=== PATIENT | female | born 1945 | race Caucasian/White ===

== ENCOUNTER 2017-08-12 10:57 | Inpatient (IN) | payer MEDICARE ==
[2017-08-12] VITALS (9 sets, daily range): BP systolic 117–139; BP diastolic 60–78; PULSE 43–62; RESP 15–22; TEMP 96.3–98.4; O2SAT 92–96
[~2017-08-12] VITALS: Ht 154.9 cm; Wt 94.4 kg
[~2017-08-12 10:57] MED LIST: ALBU.5I INH; APIX5TAB PO; CART300C2 PO; DIGO0.12 PO; ECOT81TA2 PO; EPIP0.3I IM; FENO50TA PO; FLUT50I; FURO1TAB93 PO; GABA300C3 PO; GLUCTAB PO; LEVA500T PO; LISI-360 PO; LORA1TAB PO; PRIL20CA PO; SPIRCAP INH; TRAM50 PO; VENTAER INH; Z.0.COMMODE-3:1; Z.0.CPM; Z.0.WALKERFRONT
--- NOTE | 2017-08-12 11:25 | PD ---
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 Patient was recently seen by Dr. Gloria last week and blood pressure medications were adjusted at that time. She states she is on Elequist as well as digoxin for her atrial fibrillation. Patient denies fever, chills, nausea, vomiting, or other symptoms. She denies significant pain but more of a congestion and pressure feeling. Patient has multiple allergies. Please see list. PFSH Past Medical History Asthma: Yes Autoimmune Disease: No Anxiety: Yes Depression: No Heart Rhythm Problems: Yes (afib) Cancer: Yes (LYMPH NODE MIGRATED INTO RIGHT BREAST 1978) Cardiovascular Problems: Yes (ATRIAL FIB) High Cholesterol: Yes Chest Pain: No Congestive Heart Failure: No COPD: Yes Cerebrovascular Accident: No Diabetes: Yes (TYPE 2) Patient Takes Glucophage: No Endocrine: No Gastrointestinal Disorders: Yes (ACID REFLUX ) GERD: Yes Glaucoma: No Genitourinary: No Hepatitis: No Hiatal Hernia: Yes Hypertension: Yes Immune Disorder: No Kidney Stones: No Musculoskeletal: Yes (ARTHRITIS) Neurologic: Yes (l side brain aneurysm) Psychiatric: No Reproductive: No Respiratory: Yes (SLEEP APNEA, COPD, ASTHMA ) Migraines: No Seizures: No Sleep Apnea: Yes (NEEDS BIPAP AT NIGHT) Thyroid Disease: No Ulcer: No PNEUMOCCOCAL Vaccine (Year): 1 Past Surgical History Abdominal Surgery: Yes (abd hernia lap josé, hernia repair with mesh) AICD: No Body Medical Devices: TITANIUM PIN LEFT BREAST Eye Surgery: Yes (BILATERAL CATARACT SX) Gynecologic Surgery: No Joint Replacement: No Oral Surgery: Yes (tonsillectomy) Pacemaker: No Thoracic Surgery: Yes (RIGHT RADICAL MASTECTOMY) Other Surgery: Yes Social History Alcohol Use: No Tobacco Use: No Substance Use: No Allergies-Medications (Allergen,Severity, Reaction): Coded Allergies: diatrizoate meglumine (Unverified Allergy, Severe, Rash, 08/12/17) epinephrine (Unverified Allergy, Severe, SEVERE HEART POUNDING, 08/12/17) gadobenic acid (Unverified Allergy, Severe, Rash, 08/12/17) gadodiamide (Unverified Allergy, Severe, Rash, 08/12/17) gadoteridol (Unverified Allergy, Severe, Rash, 08/12/17) iodixanol (Unverified Allergy, Severe, Rash, 08/12/17) iohexol (Unverified Allergy, Severe, Rash, 08/12/17) meperidine (Unverified Allergy, Severe, HALLUCINATIONS, 08/12/17) penicillin G (Unverified Allergy, Severe, Rash, 08/12/17) procaine (Unverified Allergy, Severe, CAUSED SEVERE HEART POUNDING, ) propofol (Unverified Allergy, Severe, hot for 3 days and then cold for 3 days, 08/12/17) warfarin (Unverified Allergy, Severe, Hives, 08/12/17) Sulfa (Sulfonamide Antibiotics) (Unverified Allergy, Unknown, 08/12/17) PT UNSURE OF REACTION Uncoded Allergies: anesthesia (Adverse Reaction, Severe, Irritability/Anxiety, 09/26/15) pt states she has multiple reactions to anesthesia sulfur (Adverse Reaction, Severe, 09/26/15) Reported Meds & Prescriptions Reported Meds & Active Scripts Active Reported Ventolin Hfa 18 GM Inh (Albuterol Sulfate) 90 Mcg/Act Aer 2 Puff INH Q4-6H PRN Potassium Chloride ER (Potassium Chloride) 10 Meq Tab 10 Meq PO DAILY Omeprazole 20 Mg Tab 20 Mg PO DAILY Methyldopa 250 Mg Tab 250 Mg PO BID Lorazepam 1 Mg Tab 1 Mg PO Q8H PRN Lisinopril 40 Mg Tab 40 Mg PO DAILY Combivent Respimat Inh (Ipratropium-Albuterol Inh) 20-100 Halfway/Act Aero 1 Puff INH QID Furosemide 40 Mg Tab 40 Mg PO DAILY Fluticasone Nasal [place] 50 Mcg/Act Naspr 50 Mcg EACH NARE BID 50 mcg/spray Fluoxetine (Fluoxetine HCl) 10 Mg Tab 10 Mg PO DAILY Fenofibrate 145 Mg Tab 145 Mg PO DAILY Epipen 2-Toño Inj (Epinephrine) 0.3 Mg/0.3 Ml Pfpen 0.3 Mg IM ONCE PRN Eliquis (Apixaban) 5 Mg Tab 5 Mg PO BID Digoxin 0.125 Mg Tab 0.125 Mg PO DAILY Clotrimazole-Betamethasone Topical (Betamethasone/Clotrimazole) 1-0.05% Cream 1 Applic TOPICAL BID Clobetasol Topical (Clobetasol Propionate) 0.05% Cream 1 Applic TOPICAL BID Cartia Xt (Diltiazem ER 24 HR) 120 Mg Caper 360 Mg PO DAILY Aspirin 81 Mg Chew 81 Mg CHEW DAILY Anoro Ellipta Inh (Umeclidinium/Vilanterol) 62.5-25 Mcg/Act Aero 1 Puff INH DAILY Review of Systems Except as stated in HPI: all other systems reviewed are Neg General / Constitutional: No: Fever Eyes: No: Visual changes HENT: No: Headaches Cardiovascular: Positive: Palpitations, Irregular Rhythm, Dyspnea on exertion, Edema (occasionally.), No: Chest Pain or Discomfort, Tachycardia, Diaphoresis, Varicosities, Cyanosis, Varicosities, Phlebitis, Claudication, Other Respiratory: Positive: Shortness of Breath Gastrointestinal: No: Nausea, Vomiting, Diarrhea, Abdominal Pain Genitourinary: No: Dysuria Musculoskeletal: No: Pain Skin: No Rash Neurologic: No: Weakness Psychiatric: No: Depression Endocrine: No: Polydipsia Hematologic/Lymphatic: No: Easy Bruising Physical Exam Narrative GENERAL: Patient appears mildly anxious but otherwise in no acute distress. SKIN: Warm and dry. Normal color. Normal turgor. HEAD: Atraumatic. Normocephalic. EYES: Pupils equal and round. No scleral icterus. No injection or drainage. ENT: No nasal bleeding or discharge. Mucous membranes pink and moist. Pharynx is clear. Airway is patent. NECK: Trachea midline. Supple nontender. CARDIOVASCULAR: Irregular rate and rhythm. No significant murmurs gallops or rubs appreciated this time. RESPIRATORY: No accessory muscle use. Clear to auscultation. Breath sounds equal bilaterally. GASTROINTESTINAL: Abdomen soft, non-tender, nondistended. Hepatic and splenic margins not palpable. MUSCULOSKELETAL: Extremities without clubbing, cyanosis, or edema. No obvious deformities. NEUROLOGICAL: Awake and alert. No obvious cranial nerve deficits. Motor grossly within normal limits. Five out of 5 muscle strength in the arms and legs. Normal speech. PSYCHIATRIC: Appropriate mood and affect; insight and judgment normal. Data Data Last Documented VS Vital Signs Date Time Temp Pulse Resp B/P (MAP) Pulse Ox O2 Delivery O2 Flow Rate FiO2 08/12/17 13:57 43 22 139/62 (87) 96 Nasal Cannula 2.00 08/12/17 11:00 98.4 Orders Orders Complete Blood Count With Diff (08/12/17 11:27) Comprehensive Metabolic Panel (08/12/17 11:27) B-Type Natriuretic Peptide (08/12/17 11:27) Act Partial Throm Time (Ptt) (08/12/17 11:) Prothrombin Time / Inr (Pt) (08/12/17 11:27) Magnesium (Mg) (08/12/17 11:27) Ckmb (Isoenzyme) Profile (08/12/17:) Troponin I (08/12/17:) Urinalysis - C+S If Indicated (08/12/17 11:27) Iv Access Insert/Monitor (08/12/17 11:27) Electrocardiogram (08/12/17:) Ecg Monitoring (08/12/17:) Oximetry (08/12/17:) Oxygen Administration (08/12/17 11:27) Chest, Single Ap (08/12/17 11:27) Sodium Chloride 0.9% Flush (Ns Flush) (08/12/17 11:30) Digoxin (08/12/17 11:27) Furosemide Inj (Lasix Inj) (08/12/17 14:00) Admit Order (Ed Use Only) (08/12/17 14:05) Labs Laboratory Tests Test 08/12/17 11:30 08/12/17 13:50 White Blood Count 11.8 TH/MM3 Red Blood Count 3.47 MIL/MM3 Hemoglobin 9.5 GM/DL Hematocrit 29.1 % Mean Corpuscular Volume 84.0 FL Mean Corpuscular Hemoglobin 27.2 PG Mean Corpuscular Hemoglobin Concent 32.4 % Red Cell Distribution Width 16.6 % Platelet Count 263 TH/MM3 Mean Platelet Volume 9.4 FL Neutrophils (%) (Auto) 81.9 % Lymphocytes (%) (Auto) 12.8 % Monocytes (%) (Auto) 4.2 % Eosinophils (%) (Auto) 0.7 % Basophils (%) (Auto) 0.4 % Neutrophils # (Auto) 9.7 TH/MM3 Lymphocytes # (Auto) 1.5 TH/MM3 Monocytes # (Auto) 0.5 TH/MM3 Eosinophils # (Auto) 0.1 TH/MM3 Basophils # (Auto) 0.0 TH/MM3 CBC Comment DIFF FINAL Differential Comment Prothrombin Time 12.8 SEC Prothromb Time International Ratio 1.2 RATIO Activated Partial Thromboplast Time 28.5 SEC Blood Urea Nitrogen 29 MG/DL Creatinine 1.62 MG/DL Random Glucose 204 MG/DL Total Protein 6.5 GM/DL Albumin 3.0 GM/DL Calcium Level 8.5 MG/DL Magnesium Level 1.8 MG/DL Alkaline Phosphatase 57 U/L Aspartate Amino Transf (AST/SGOT) 22 U/L Alanine Aminotransferase (ALT/SGPT) 32 U/L Total Bilirubin 0.3 MG/DL Sodium Level 137 MEQ/L Potassium Level 4.4 MEQ/L Chloride Level 105 MEQ/L Carbon Dioxide Level 22.3 MEQ/L Anion Gap 10 MEQ/L Estimat Glomerular Filtration Rate 31 ML/MIN Total Creatine Kinase 33 U/L Troponin I LESS THAN 0.02 NG/ML B-Type Natriuretic Peptide 303 PG/ML Digoxin Level 1.5 NG/ML [facility] Medical Decision Making Medical Screen Exam Complete: Yes Emergency Medical Condition: Yes Medical Record Reviewed: Yes Differential Diagnosis CHF. Palpitations. Atrial fibrillation. Cardiac syndrome. Narrative Course Patient appears medically stable at time of exam. Labs ordered including CBC, CMP, proBNP, digoxin level, cardiac panel, urinalysis. Chest x-ray and EKG are ordered. Chest x-ray shows: CONCLUSION: 1. Pulmonary venous congestion. 2. No significant changes. Labs show: CBC shows slight leukocytosis of 11.8, hemoglobin is 9.5. Hematocrit is 29.1. CMP shows BUN of 29, creatinine 1.62, gross is elevated at 204. Troponin is less than 0.02. ProBNP is 303. Digoxin level was normal at 1.5. Coagulation studies show PT of 12.8, INR 1.2, APTT 28.5. Patient is felt to be having symptomatic bradycardia with venous congestion on chest x-ray. Patient is given 20 mg Lasix IV. [facility] consult. Diagnosis Primary Impression: Symptomatic bradycardia Additional Impressions: Exertional dyspnea Pulmonary venous congestion Admitting Information Admitting Physician Requests: Admit Condition: Stable Santos Coppola Aug 12, 2017 11:25
[2017-08-12] MEDS ORDERED: SODIUM CHLORIDE 0.9% FLUSH 10 ML FLUSH IVF PRN (11:30)
[2017-08-12 11:53] LABS: AUTOMATED NEUTROPHIL # 9.7 TH/MM3 (1.8-7.7); BASOPHIL % 0.4 % (0.0-2.0); EOSINOPHIL # 0.1 TH/MM3 (0-0.4); EOSINOPHIL % 0.7 % (0.0-4.0); HEMATOCRIT 29.1 % (35.0-46.0); HEMO FLAGS DIFF FINAL; LYMPH % 12.8 % (9.0-44.0); LYMPHOCYTE # 1.5 TH/MM3 (1.0-4.8); MEAN CORPUSCULAR HEMOGLOBIN 27.2 PG (27.0-34.0); MEAN CORPUSCULAR HGB CONC 32.4 % (32.0-36.0); MONO % 4.2 % (0.0-8.0); NEUT % 81.9 % (16.0-70.0); PLATELET COUNT 263 TH/MM3 (150-450); RED BLOOD COUNT 3.47 MIL/MM3 (4.00-5.30); RED CELL DISTRIBUTION WIDTH 16.6 % (11.6-17.2); WHITE BLOOD COUNT 11.8 TH/MM3 (4.0-11.0)
--- NOTE | 2017-08-12 11:58 | RADRPT ---
EXAM DATE/TIME: 08/12/2017 11:50 [facility] COMPARISON: CHEST SINGLE AP, October 10, 2015, 5:49. INDICATIONS : Shortness of breath. MEDICAL HISTORY : Chronic obstructive pulmonary disease. A-fib. SURGICAL HISTORY : None. ENCOUNTER: Initial ACUITY: 2 days PAIN SCORE: 0/10 LOCATION: Bilateral chest FINDINGS: A single view of the chest demonstrates the lungs to be symmetrically aerated without evidence of mas s, infiltrate or effusion. There is some pulmonary venous congestion. Heart size is enlarged but stab le. The bony structures are stable.. CONCLUSION: 1. Pulmonary venous congestion. 2. No significant changes. Edwar Camara MD on August 12, 2017 at 11:56 Board Certified Radiologist. This report was verified electronically.
[2017-08-12 12:02] LABS: APTT (PATIENT) 28.5 SEC (24.3-30.1); INTERNATIONAL NORMALIZED RATIO 1.2 RATIO; PROTHROMBIN TIME - PATIENT 12.8 SEC (9.8-11.6)
[2017-08-12 12:08] LABS: ALT (GPT) 32 U/L (10-53); ANION GAP 10 MEQ/L (5-15); AST (GOT) 22 U/L (15-37); BICARBONATE 22.3 MEQ/L (21.0-32.0); BLOOD UREA NITROGEN 29 MG/DL (7-18); CHLORIDE 105 MEQ/L (98-107); GLOMERULAR FILTRATION RATE 31 ML/MIN (>89); MAGNESIUM 1.8 MG/DL (1.5-2.5); POTASSIUM 4.4 MEQ/L (3.5-5.1); SODIUM (NA) 137 MEQ/L (136-145)
[2017-08-12 12:24] LABS: ALKALINE PHOSPHATASE 57 U/L (45-117); DIGOXIN 1.5 NG/ML (0.8-2.0); TOTAL BILIRUBIN ADULT 0.3 MG/DL (0.2-1.0)
[2017-08-12 12:29] LABS: CREATINE KINASE 33 U/L (26-192)
[2017-08-12] MEDS ORDERED: UMEC1AER INH (12:35)
[2017-08-12] MEDS ORDERED: FLUO10TA PO (12:35)
[2017-08-12] MEDS ORDERED: IPRAAER INH (12:35)
[2017-08-12] MEDS ORDERED: LORA1TAB12 PO (12:35)
[2017-08-12] MEDS ORDERED: POTA10TA2 PO (12:35)
[2017-08-12] MEDS ORDERED: FLUT50SP EACH NARE (12:35)
[2017-08-12] MEDS ORDERED: DIGO0.12 PO (12:35)
[2017-08-12] MEDS ORDERED: OMEP20TA PO (12:35)
[2017-08-12] MEDS ORDERED: CART120C PO (12:35)
[2017-08-12] MEDS ORDERED: VENTAER INH (12:35)
[2017-08-12] MEDS ORDERED: CLOB0.055 TOPICAL (12:35)
[2017-08-12] MEDS ORDERED: CLOTCRE TOPICAL (12:35)
[2017-08-12] MEDS ORDERED: FURO40TA PO (12:35)
[2017-08-12] MEDS ORDERED: ASPI81CH CHEW (12:35)
[2017-08-12] MEDS ORDERED: LISI40TA PO (12:35)
[2017-08-12] MEDS ORDERED: FENO145T2 PO (12:35)
[2017-08-12] MEDS ORDERED: EPIP0.3I IM (12:35)
[2017-08-12] MEDS ORDERED: APIX5TAB PO (12:35)
[2017-08-12] MEDS ORDERED: METH250T PO (12:35)
[2017-08-12] MEDS ORDERED: FUROSEMIDE 20 MG/2 ML VIAL IV PUSH ONE (14:00)
[2017-08-12 14:26] LABS: BACTERIA, URINE MANY /hpf; BLOOD, URINE SMALL (NEG); GLUCOSE,URINE TRACE mg/dL (NEG); GRANULAR CAST, URINE 2 /lpf; HYALINE CAST, URINE 19 /lpf (RARE); KETONE, URINE TRACE mg/dL (NEG); MUCUS URINE FEW /lpf (OCC); NITRITE,URINE NEG (NEG); PH, URINE 5.5 (5.0-8.5); SQUAMOUS EPITHELIAL CELL URINE 13 /hpf (0-5)
[2017-08-12 14:30] LABS: COMMENT (UR) CULTURE INDICATED; CULTURE IF INDICATED CULTURE INDICATED; URINE COLOR AMBER (YELLW/STRAW)
[2017-08-12] MEDS ORDERED: LORazepam 1 MG TAB PO PRN (15:00)
--- NOTE | 2017-08-12 15:21 | HHI.HP ---
HPI [facility] Primary Care Physician Seema Jarrell MD Admission Diagnosis Symptomatic Bradicardia/Exertional Dyspnea Chief Complaint: sob Travel History International Travel<30 Days: No Contact w/Intl Traveler <30 Da: No Traveled to Known Affected Are: No History of Present Illness Pt is 72 yo with htn, afib, copd, anxiety presenting with more sob. She reports medication changes and close observation by cp of her bp and pulse over recent weeks. Pt is quite anxious and has some difficulty explaining the exact medication changes. she thinks her methyldopa and was increased and perhaps the cartia. she actually has not felt well for weeks and even reports palpitations. reports fluctuating weight and abdomen distention. Pt noted to have severe bradycardia on arrival with apparently Junctional rhythm.. No dizziness or lightheadedness. Review of Systems Other sob. weakness. Past Family Social History Past Medical History COPD Hx of TIA in 04/2014 Small cerebral aneurysm, 2 or 3 mm. A. fib Diabetes mellitus HTN Hx of lymphoma with rt radical mastectomy 30 years ago Hernia surgery Cholecystectomy Cataract surgery Right mastectomy Tonsillectomy right tka echo: 01/07 ef 55%, mild RV dilation and right atrial dil mild Reported Medications Ventolin Hfa 18 GM Inh (Albuterol Sulfate) 90 Mcg/Act Aer 2 Puff INH Q4-6H PRN Potassium Chloride ER (Potassium Chloride) 10 Meq Tab 10 Meq PO DAILY prn with lasix Omeprazole 20 Mg Tab 20 Mg PO DAILY Methyldopa 250 Mg Tab 250 Mg PO BID Lorazepam 1 Mg Tab 1 Mg PO Q8H PRN Lisinopril 40 Mg Tab 40 Mg PO DAILY Combivent Respimat Inh (Ipratropium-Albuterol Inh) 20-100 Assisted/Act Aero 1 Puff INH QID Furosemide 40 Mg Tab 40 Mg PO DAILY prn Fluticasone Nasal [place] 50 Mcg/Act Naspr 50 Mcg EACH NARE BID 50 mcg/spray Fluoxetine (Fluoxetine HCl) 10 Mg Tab 10 Mg PO DAILY Fenofibrate 145 Mg Tab 145 Mg PO DAILY Epipen 2-Toño Inj (Epinephrine) 0.3 Mg/0.3 Ml Pfpen 0.3 Mg IM ONCE PRN Eliquis (Apixaban) 5 Mg Tab 5 Mg PO BID Digoxin 0.125 Mg Tab 0.125 Mg PO DAILY Clotrimazole-Betamethasone Topical (Betamethasone/Clotrimazole) 1-0.05% Cream 1 Applic TOPICAL BID Clobetasol Topical (Clobetasol Propionate) 0.05% Cream 1 Applic TOPICAL BID Cartia Xt (Diltiazem ER 24 HR) 120 Mg Caper 360 Mg PO DAILY Aspirin 81 Mg Chew 81 Mg CHEW DAILY Anoro Ellipta Inh (Umeclidinium/Vilanterol) 62.5-25 Mcg/Act Aero 1 Puff INH DAILY Allergies: Coded Allergies: diatrizoate meglumine (Unverified Allergy, Severe, Rash, 08/12/17) epinephrine (Unverified Allergy, Severe, SEVERE HEART POUNDING, 08/12/17) gadobenic acid (Unverified Allergy, Severe, Rash, 08/12/17) gadodiamide (Unverified Allergy, Severe, Rash, 08/12/17) gadoteridol (Unverified Allergy, Severe, Rash, 08/12/17) iodixanol (Unverified Allergy, Severe, Rash, 08/12/17) iohexol (Unverified Allergy, Severe, Rash, 08/12/17) meperidine (Unverified Allergy, Severe, HALLUCINATIONS, 08/12/17) penicillin G (Unverified Allergy, Severe, Rash, 08/12/17) procaine (Unverified Allergy, Severe, CAUSED SEVERE HEART POUNDING, ) propofol (Unverified Allergy, Severe, hot for 3 days and then cold for 3 days, 08/12/17) warfarin (Unverified Allergy, Severe, Hives, 08/12/17) Sulfa (Sulfonamide Antibiotics) (Unverified Allergy, Unknown, 08/12/17) PT UNSURE OF REACTION Uncoded Allergies: anesthesia (Adverse Reaction, Severe, Irritability/Anxiety, 09/26/15) pt states she has multiple reactions to anesthesia sulfur (Adverse Reaction, Severe, 09/26/15) Family History nc Social History no etoh/tob Physical Exam Vital Signs heart reg lung good air entry abd s/nt ext no edema Vital Signs Date Time Temp Pulse Resp B/P (MAP) Pulse Ox O2 Delivery O2 Flow Rate FiO2 08/12/17 13:57 43 22 139/62 (87) 96 Nasal Cannula 2.00 08/12/17 12:14 18 117/63 (81) 93 2.00 08/12/17 12:13 92 Nasal Cannula 2.00 08/12/17 12:13 92 Nasal Cannula 2.00 08/12/17 12:10 89 Room Air 08/12/17 11:22 17 08/12/17 11:00 98.4 52 15 121/60 (80) 95 Laboratory Laboratory Tests Test 08/12/17 11:30 08/12/17 13:50 White Blood Count 11.8 Red Blood Count 3.47 Hemoglobin 9.5 Hematocrit 29.1 Mean Corpuscular Volume 84.0 Mean Corpuscular Hemoglobin 27.2 Mean Corpuscular Hemoglobin Concent 32.4 Red Cell Distribution Width 16.6 Platelet Count 263 Mean Platelet Volume 9.4 Neutrophils (%) (Auto) 81.9 Lymphocytes (%) (Auto) 12.8 Monocytes (%) (Auto) 4.2 Eosinophils (%) (Auto) 0.7 Basophils (%) (Auto) 0.4 Neutrophils # (Auto) 9.7 Lymphocytes # (Auto) 1.5 Monocytes # (Auto) 0.5 Eosinophils # (Auto) 0.1 Basophils # (Auto) 0.0 CBC Comment DIFF FINAL Differential Comment Prothrombin Time 12.8 Prothromb Time International Ratio 1.2 Activated Partial Thromboplast Time 28.5 Blood Urea Nitrogen 29 Creatinine 1.62 Random Glucose 204 Total Protein 6.5 Albumin 3.0 Calcium Level 8.5 Magnesium Level 1.8 Alkaline Phosphatase 57 Aspartate Amino Transf (AST/SGOT) 22 Alanine Aminotransferase (ALT/SGPT) 32 Total Bilirubin 0.3 Sodium Level 137 Potassium Level 4.4 Chloride Level 105 Carbon Dioxide Level 22.3 Anion Gap 10 Estimat Glomerular Filtration Rate 31 Total Creatine Kinase 33 Troponin I LESS THAN 0.02 B-Type Natriuretic Peptide 303 Digoxin Level 1.5 Urine Color CHATA Urine Turbidity HAZY Urine pH 5.5 Urine Specific [place] 1.027 Urine Protein 300 Urine Glucose (UA) TRACE Urine Ketones TRACE Urine Occult Blood SMALL Urine Nitrite NEG Urine Bilirubin NEG Urine Urobilinogen 4.0 Urine Leukocyte Esterase MOD Urine RBC 2 Urine WBC 14 Urine Squamous Epithelial Cells 13 Urine Bacteria MANY Urine Hyaline Casts 19 Urine Granular Casts 2 Urine Mucus FEW Microscopic Urinalysis Comment CULTURE INDICATED Date/Time Source Procedure Growth Status 08/12/17 13:50 Urine Clean Catch Urine Culture Pending Received Result Diagram: 08/12/17 1130 08/12/17 1130 Caprini VTE Risk Assessment Caprini Risk Assessment Model Point Value = 1 Point Value = 2 Point Value = 3 Point Value = 5 Age 41-60 Minor surgery BMI > 25 kg/m2 Swollen legs Varicose veins or History of unexplained or recurrent spontaneous Oral contraceptives or hormone replacement Sepsis (< 1 month) Serious lung disease, including pneumonia (< 1 month) Abnormal pulmonary function Acute myocardial infarction Congestive heart failure (< 1 month) History of inflammatory bowel disease Medical patient at bed rest Age 61-74 Arthroscopic surgery Major open surgery (> 45 min) Laparoscopic surgery (> 45 min) Malignancy Confined to bed (> 72 hours) Immobilizing plaster cast Central venous access Age >= 75 History of VTE Family history of VTE Factor V Leiden Prothrombin [id number] Lupus anticoagulant Anticardiolipin antibodies Elevated serum homocysteine Heparin-induced thrombocytopenia Other congenital or acquired thrombophilia Stroke (< 1 month) Elective arthroplasty Hip, pelvis, or leg fracture Acute spinal cord injury (< 1 month) Prophylaxis Regimen Total Risk Factor Score Risk Level Prophylaxis Regimen 0-1 Low Early ambulation 2 Moderate Order ONE of the following: *Sequential Compression Device (SCD) *Heparin 5000 units SQ BID 3-4 Higher Order ONE of the following medications: *Heparin 5000 units SQ TID *Enoxaparin/Lovenox 40 mg SQ daily (WT < 150 kg, CrCl > 30 mL/min) *Enoxaparin/Lovenox 30 mg SQ daily (WT < 150 kg, CrCl > 10-29 mL/min) *Enoxaparin/Lovenox 30 mg SQ BID (WT < 150 kg, CrCl > 30 mL/min) AND/OR *Sequential Compression Device (SCD) 5 or more Highest Order ONE of the following medications: *Heparin 5000 units SQ TID (Preferred with Epidurals) *Enoxaparin/Lovenox 40 mg SQ daily (WT < 150 kg, CrCl > 30 mL/min) *Enoxaparin/Lovenox 30 mg SQ daily (WT < 150 kg, CrCl > 10-29 mL/min) *Enoxaparin/Lovenox 30 mg SQ BID (WT < 150 kg, CrCl > 30 mL/min) AND *Sequential Compression Device (SCD) Assessment and Plan Problem List: (1) Symptomatic bradycardia ICD Codes: R00.1 - Bradycardia, unspecified Status: Acute Plan: 1. symptomatic bradycardia. appears junctional heart rate 40s.(at home "30s"). ?sss....?medication related. 2. paulina. 3. uti 4. htn 5. copd 6. afib Plan gentle ivf. recheck bmp in AM. hold linus tonight. hold prn lasix. hold dig and cardizem tonight telemetry. cardiology consulted abx and f/u urine cx dvt prophylaxis. (2) UTI (urinary tract infection) ICD Codes: N39.0 - Urinary tract infection, site not specified Status: Acute (3) PAULINA (acute kidney injury) ICD Codes: N17.9 - Acute kidney failure, unspecified Status: Acute (4) Afib ICD Codes: I48.91 - Atrial fibrillation Status: Chronic (5) COPD (chronic obstructive pulmonary disease) ICD Codes: J44.9 - Chronic obstructive pulmonary disease Status: Chronic (6) Aneurysm, cerebral, nonruptured ICD Codes: I67.1 - Nonruptured cerebral aneurysm Status: Chronic Physician Certification 2 Midnight Certification Type: Admission for Inpatient Services Order for Inpatient Services 3The services are ordered in accordance with Medicare regulations or non- Medicare payer requirements, as applicable. In the case of services not specified as inpatient-only, they are appropriately provided as inpatient services in accordance with the 2-midnight benchmark. Estimated LOS (days): 3 3 days is the estimated time the patient will need to remain in the hospital, assuming treatment plan goals are met and no additional complications. Post-Hospital Plan: Home Jerome Alfaro MD Aug 12, 2017 15:21
[2017-08-12] MEDS: LEVOFLOXACIN 250 MG PREMIX INJ 50 ML IV SCH (16:22)
[2017-08-12] MEDS: SODIUM CHLOR 0.9% 1000 ML INJ 1,000 ML IV SCH (16:23)
[2017-08-12] MEDS ORDERED: NON-FORMULARY DRUG (Ipratropium-Albuterol Inh (Combivent Respimat Inh) 1 PUFF) INH SCH (18:00)
[2017-08-12] MEDS: ALBUTEROL SULFATE 90 MCG/ACT HFA 8 GM INHALER INH SCH ×2 (18:39→20:16)
[2017-08-12] MEDS: METHYLDOPA 250 MG TAB PO SCH (20:16)
[2017-08-12] MEDS: APIXABAN 5 MG TABLET PO SCH (20:16)
[2017-08-12] MEDS: FLUTICASONE PROPIONATE 50 MCG/ACT 16 GM NASAL SPRAY EACH NARE SCH (20:17)
[2017-08-13] VITALS (11 sets, daily range): BP systolic 138–175; BP diastolic 68–78; PULSE 63–77; RESP 20–24; TEMP 97.7–98.8; O2SAT 91–96
[2017-08-13] MEDS: SODIUM CHLOR 0.9% 1000 ML INJ 1,000 ML IV SCH (05:18)
[2017-08-13] MEDS: ALBUTEROL SULFATE 90 MCG/ACT HFA 8 GM INHALER INH SCH (08:12)
[2017-08-13] MEDS: APIXABAN 5 MG TABLET PO SCH ×2 (08:12→22:02)
[2017-08-13] MEDS: FLUoxetine HCL 10 MG CAP PO SCH (08:12)
[2017-08-13] MEDS: PANTOPRAZOLE SOD 20 MG DELAYED RELEASE TAB PO SCH (08:12)
[2017-08-13] MEDS: FENOFIBRATE 145 MG TAB PO SCH (08:12)
[2017-08-13] MEDS: METHYLDOPA 250 MG TAB PO SCH ×2 (08:14→22:02)
[2017-08-13] MEDS ORDERED: TIOTROPIUM BROMIDE 18 MCG INH INH SCH (09:00)
[2017-08-13] MEDS ORDERED: UMECLIDINIUM 62.5 MCG/VILANTEROL 25 MCG INHALER INH SCH (09:00)
[2017-08-13] MEDS: FLUTICASONE PROPIONATE 50 MCG/ACT 16 GM NASAL SPRAY EACH NARE SCH ×2 (09:01→22:02)
--- NOTE | 2017-08-13 09:32 | HHI.PR ---
Subjective Remarks pt anxious about her medications and pharmacy therapeutic exchanges. overall feels much better now that her HR is 60s. Objective Vitals heart reg lung cta abd s/nt ext no edema Vital Signs Date Time Temp Pulse Resp B/P (MAP) Pulse Ox O2 Delivery O2 Flow Rate FiO2 08/13/17 08:00 97.8 64 20 138/74 (95) 91 08/13/17 04:00 97.9 69 24 160/68 (98) 94 08/13/17 03:00 96 30 08/13/17 00:00 97.7 63 22 168/78 (108) 93 08/12/17 20:21 57 08/12/17 20:17 94 Nasal Cannula 2.00 08/12/17 20:00 97.5 61 22 123/78 (93) 93 08/12/17 20:00 Nasal Cannula 2.00 08/12/17 17:51 62 08/12/17 16:00 96.3 61 16 132/60 (84) 94 08/12/17 15:33 08/12/17 13:57 43 22 139/62 (87) 96 Nasal Cannula 2.00 08/12/17 12:14 18 117/63 (81) 93 2.00 08/12/17 12:13 92 Nasal Cannula 2.00 08/12/17 12:13 92 Nasal Cannula 2.00 08/12/17 12:10 89 Room Air 08/12/17 11:22 17 08/12/17 11:00 98.4 52 15 121/60 (80) 95 Result Diagram: 08/12/17 1130 08/12/17 1130 A/P Problem List: (1) Symptomatic bradycardia ICD Codes: R00.1 - Bradycardia, unspecified Status: Acute Plan: 1. symptomatic bradycardia. appears junctional heart rate 40s.(at home "30s"). ?sss....?medication related. today looks sinus parveen in 60s and sob better. 2. paulina. 3. uti 4. htn 5. copd 6. afib Plan gentle ivf given. repeat bmp pending as pt has limited veins.. resume her linus for bp control. f/u bmp holding dig and cardizem ...will await cardiology reccs to either resume some dose of rate control for her afib or just continue to monitor off. telemetry. abx and f/u urine cx dvt prophylaxis. (2) UTI (urinary tract infection) ICD Codes: N39.0 - Urinary tract infection, site not specified Status: Acute (3) PAULINA (acute kidney injury) ICD Codes: N17.9 - Acute kidney failure, unspecified Status: Acute (4) Afib ICD Codes: I48.91 - Atrial fibrillation Status: Chronic (5) COPD (chronic obstructive pulmonary disease) ICD Codes: J44.9 - Chronic obstructive pulmonary disease Status: Chronic (6) Aneurysm, cerebral, nonruptured ICD Codes: I67.1 - Nonruptured cerebral aneurysm Status: Chronic Jerome Alfaro MD Aug 13, 2017 09:32
[2017-08-13] MEDS ORDERED: LISINOPRIL 20 MG TAB PO ONE (10:00)
[2017-08-13] MEDS ORDERED: ASPIRIN 81 MG CHEW TAB CHEW ONE (10:00)
[2017-08-13] MEDS ORDERED: ALBUTEROL SULFATE 90 MCG/ACT HFA 8 GM INHALER INH PRN (10:00)
[2017-08-13 12:37] LABS: BICARBONATE 25.9 MEQ/L (21.0-32.0); POTASSIUM 4.1 MEQ/L (3.5-5.1)
--- NOTE | 2017-08-13 12:51 | RADRPT ---
EXAM DATE/TIME: 08/13/2017 11:37 [facility] COMPARISON: No previous studies available for comparison. INDICATIONS : Elevated BUN/Creatnine. MEDICAL HISTORY : Hypercholesterolemia. Hypertension. Chronic obstructive pulmonary disease. Dentures. Numbness. Atrial fibrillation. Left side brain aneurysm. Sleep apnea. Asthma. Dyspnea. Hiatal hernia. Osteoporosis. G astroesophageal reflux disease. Anxiety. Lymph node cancer. 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 SURGICAL HISTORY : Tonsillectomy. Cholecystectomy. Total knee replacement, right. Bilateral cataract surgery. Hernia rep air. ENCOUNTER: Initial ACUITY: 1 day PAIN SCORE: 0/10 LOCATION: Bilateral flank MEASUREMENTS: RIGHT KIDNEY: 12.6 x 4.9 x 5.3 cm LEFT KIDNEY: 10.9 x 4.7 x 5.8 cm FINDINGS: RIGHT KIDNEY: Renal cortex is normal in thickness and echotexture. No hydronephrosis, stone, or mass. LEFT KIDNEY: Renal cortex is normal in thickness and echotexture. No hydronephrosis, stone, or mass. BLADDER: Within normal limits given the degree of distension. CONCLUSION: Normal examination. Perfecto Olvera MD on August 13, 2017 at 12:49 Board Certified Radiologist. This report was verified electronically.
[2017-08-13] MEDS ORDERED: cloNIDine HCL 0.1 MG TAB PO PRN (13:15)
[2017-08-13] MEDS ORDERED: amLODIPine BESYLATE 5 MG TAB PO SCH (14:00)
--- NOTE | 2017-08-13 14:40 | MB ---
cc: HODA RAMESH MD DATE OF CONSULTATION: 08/13/2017 REASON FOR CONSULTATION: Symptomatic bradycardia. HISTORY OF PRESENT ILLNESS The patient is a very pleasant 72-year-old woman who sees my colleague Dr. Gloria for history of paroxysmal atrial fibrillation and she is maintained on digoxin a Cardizem and Eliquis. The patient notes the last several weeks she had intermittently seen her heart rate is low as 40 beats per minute when she checks her pulse oximetry. She notes she feels quite terrible when her heart rate is this slow with extreme weakness. She eventually presented emergency department where she was found to be in a junctional rhythm at about 40 beats per minute. Her Cardizem and digoxin and held and she is now back into normal sinus rhythm and she says she is feeling much better. Thus far, we have not seen any significant A fib or RVR. Again currently she is asymptomatic and she does note that she is not interested in a pacemaker during this visit due to financial and scheduling conflicts. PAST MEDICAL HISTORY 1. Paroxysmal atrial fibrillation on Eliquis. 2. COPD 3. TIA 4. Diabetes 5. Hypertension 6. lymphoma 7. Obesity CURRENT MEDICATIONS 1. Aspirin 81 milligrams daily 2. <<1:28>> 20 mg b.i.d. 3. Fenofibrate. 4. Prozac 10 mg daily. 5. Protonix 20 mg daily 6. Eliquis 5 mg b.i.d. 7. Methyldopa but 250 mg b.i.d. 8. Levaquin IV. ALLERGIES MULTIPLE PLEASE REFER TO EMR. PHYSICAL EXAMINATION Afebrile, pulse 66, respiratory 20, BP 175/74 (was 138/74 this morning), satting 92 on 2 liters. IN GENERAL: Pleasant well-appearing / mildly anxious obese woman in no distress. NECK: No JVD. LUNGS: Clear to auscultation bilaterally. CARDIOVASCULAR SYSTEM: Regular rate and rhythm. No significant murmurs appreciated. ABDOMEN: Benign. EXTREMITIES: No edema. LABORATORY DATA Sodium 39,004.1506, bicarb 25.9, BUN 25, creatinine 0.96, glucose 208. Troponin is negative x1. Digoxin level 1.5. White count 11.8, hematocrit 29.1, platelets 263. RADIOLOGIC: EKG on presentation showed a likely junctional rhythm at about 40 beats per minute current telemetry shows normal sinus rhythm with rates in the 60s. IMPRESSION Symptomatic junctional bradycardia. The patient likely has some element of sick sinus syndrome and her symptomatic junctional rhythm has now resolved with cessation of her digoxin and Cardizem. There certainly A good chance she could have a rapid ventricular atrial fibrillation without these medications on board and I discussed this at length with the patient. PLAN: My plan will be to observe her over the next day and see if she has any significantly higher heart rates. If none I would let her go home to follow up with Dr. Gloria for some sort of longer term outpatient monitoring. She may end up requiring a pacemaker and/or ablation due to the difficulty with both tachybrady responses. Further recommendations will based on her clinical course. Thank you again for the opportunity to participate in this patient's care. MD TERESA Lee/jenn /2:08 PM /2:28 PM
[2017-08-13] MEDS: LEVOFLOXACIN 250 MG PREMIX INJ 50 ML IV SCH (15:02)
[2017-08-13] MEDS ORDERED: TEMAZEPAM 15 MG CAP PO PRN (15:30)
--- NOTE | 2017-08-13 17:28 | EKG ---
Date Performed: 08/12/2017 Time Performed: 12:07:20 PTAGE: 72 years EKG: Sinus rhythm WITH HIGH GRADE AV BLOCK MARKED LEFT AXIS DEVIATION MODERATE ST DEPRESSION ABNORMAL ECG PREVIOUS TRACING : 09/26/2015 09.12 DOCTOR: Juan Gonzalez Interpretating Date/Time 08/13/2017 17:27:34
[2017-08-13] MEDS ORDERED: LISINOPRIL 20 MG TAB PO SCH (21:00)
[2017-08-14] VITALS: BP 153/65; PULSE 67; RESP 20; TEMP 98.2; O2SAT 94
[2017-08-14 04:34] VITALS: O2SAT 94
[2017-08-14 08:00] VITALS: BP 176/57; PULSE 62; PULSE 74; RESP 20; TEMP 97.9; O2SAT 94
[2017-08-14] MEDS ORDERED: amLODIPine BESYLATE 5 MG TAB PO SCH (09:00)
[2017-08-14] MEDS ORDERED: LISINOPRIL 20 MG TAB PO SCH ×2 (09:00)
[2017-08-14] MEDS ORDERED: ASPIRIN 81 MG CHEW TAB CHEW SCH (09:00)
[2017-08-14] MEDS: METHYLDOPA 250 MG TAB PO SCH (09:16)
[2017-08-14] MEDS: APIXABAN 5 MG TABLET PO SCH (09:17)
[2017-08-14] MEDS: PANTOPRAZOLE SOD 20 MG DELAYED RELEASE TAB PO SCH (09:20)
[2017-08-14] MEDS: FENOFIBRATE 145 MG TAB PO SCH (09:20)
[2017-08-14] MEDS: FLUTICASONE PROPIONATE 50 MCG/ACT 16 GM NASAL SPRAY EACH NARE SCH (09:21)
[2017-08-14] MEDS: FLUoxetine HCL 10 MG CAP PO SCH (09:21)
[2017-08-14 10:20] VITALS: O2SAT 93
--- NOTE | 2017-08-14 10:49 | HHI.PR ---
Subjective Remarks doing well. Objective Vitals heart reg lung cta abd s/nt ext no edema Vital Signs Date Time Temp Pulse Resp B/P (MAP) Pulse Ox O2 Delivery O2 Flow Rate FiO2 08/14/17 10:20 93 08/14/17 08:00 97.9 62 20 176/57 (96) 94 08/14/17 04:34 94 21 08/14/17 00:00 98.2 67 20 153/65 (94) 94 08/13/17 22:48 94 21 08/13/17 20:18 66 08/13/17 20:00 97.8 77 20 166/72 (103) 94 08/13/17 20:00 Room Air 08/13/17 16:00 98.8 66 22 155/69 (97) 93 08/13/17 12:00 97.8 66 22 175/74 (107) 92 Result Diagram: 08/12/17 1130 08/13/17 1120 A/P Problem List: (1) Symptomatic bradycardia ICD Codes: R00.1 - Bradycardia, unspecified Status: Acute Plan: 1. symptomatic bradycardia. appears junctional heart rate 40s.(at home "30s"). ?sss....?medication related. today looks sinus parveen in 60s and sob better. 2. paulina. 3. uti 4. htn 5. copd 6. afib 7. dm 2 Plan renal function improved cont linus at home dose and methyldopa. cardiology added norvasc so far her rate is controlled and sinus.......will hold off on dig and cardizem until cardiology thinks we should resume it....I explained to pt she very well may return to afib with rvr..... telemetry. abx and f/u urine cx....looks contaminant...pt denies uti sx's she will f/u with pcp for dm management. dvt prophylaxis. d/c later today if bp/hr controlled and ok with cardiology. (2) UTI (urinary tract infection) ICD Codes: N39.0 - Urinary tract infection, site not specified Status: Acute (3) PAULINA (acute kidney injury) ICD Codes: N17.9 - Acute kidney failure, unspecified Status: Acute (4) Afib ICD Codes: I48.91 - Atrial fibrillation Status: Chronic (5) COPD (chronic obstructive pulmonary disease) ICD Codes: J44.9 - Chronic obstructive pulmonary disease Status: Chronic (6) Aneurysm, cerebral, nonruptured ICD Codes: I67.1 - Nonruptured cerebral aneurysm Status: Chronic Jerome Alfaro MD Aug 14, 2017 10:49
[2017-08-14 12:00] VITALS: BP 164/84; PULSE 65; RESP 20; TEMP 97.9; O2SAT 92
[2017-08-14] MEDS ORDERED: INSULIN ASPART SUPPLEMENTAL SCALE SQ SCH (12:00)
--- NOTE | 2017-08-14 14:48 | PD.CARD.PN ---
Subjective Subjective Remarks Pt feels well, no complaints, good rates on tele in SR, she feels ready (though a bit nervous) to go home Objective Medications Current Medications Medications (Trade) Dose Ordered Sig/[place] Route Start Time Stop Time Status Last Admin (NS Flush) 2 ml UNSCH PRN IVF 08/12/17 11:30 (Eliquis) 5 mg BID PO 08/12/17 21:00 08/14/17 09:17 (Tricor) 145 mg DAILY PO 08/13/17 09:00 08/14/17 09:20 (PROzac) 10 mg DAILY PO 08/13/17 09:00 08/14/17 09:21 (Flonase Dar Spr) 1 spray BID EACH NARE 08/12/17 21:00 08/14/17 09:21 (Ativan) 1 mg Q8H PRN PO 08/12/17 15:00 (Aldomet) 250 mg BID PO 08/12/17 21:00 08/14/17 09:16 (Protonix) 20 mg DAILY PO 08/13/17 09:00 08/14/17 09:20 Levofloxacin/ Dextrose 50 ml @ 50 mls/hr Q24H IV 08/12/17 16:00 08/13/17 15:02 (Proair Hfa Inh) 1 puff QID PRN INH 08/13/17 10:00 (Aspirin Chew) 81 mg DAILY CHEW 08/14/17 09:00 08/14/17 09:16 (Catapres) 0.1 mg Q6H PRN PO 08/13/17 13:15 (Restoril) 15 mg HS PRN PO 08/13/17 15:30 08/14/17 00:45 (Prinivil) 40 mg DAILY PO 08/14/17 09:00 08/14/17 09:16 (Norvasc) 5 mg DAILY PO 08/14/17 09:00 08/14/17 09:16 (NovoLOG SUPPLEMENTAL SCALE) 1 ACHS SLIDING SCALE SQ 08/14/17 12:00 Vital Signs / I&O Vital Signs Date Time Temp Pulse Resp B/P (MAP) Pulse Ox O2 Delivery O2 Flow Rate FiO2 08/14/17 12:00 97.9 65 20 164/84 (110) 92 08/14/17 10:20 93 08/14/17 08:00 74 08/14/17 08:00 97.9 62 20 176/57 (96) 94 08/14/17 07:00 93 Room Air 08/14/17 04:34 94 21 08/14/17 00:00 98.2 67 20 153/65 (94) 94 08/13/17 22:48 94 21 08/13/17 20:18 66 08/13/17 20:00 97.8 77 20 166/72 (103) 94 08/13/17 20:00 Room Air 08/13/17 16:00 98.8 66 22 155/69 (97) 93 I/O 08/13/17 08/13/17 08/13/17 08/14/17 08/14/17 08/14/17 07:00 15:00 23:00 07:00 15:00 23:00 Intake Total 820 ml 770 ml Output Total 1300 ml Balance -480 ml 770 ml Intake Oral 820 ml 720 ml IV Total 50 ml Output Urine Total 1300 ml # Voids 4 # Bowel Movements 0 Physical Exam GENERAL: This is a well-nourished, well-developed patient, in no apparent distress. CARDIOVASCULAR: Regular rate and rhythm without murmurs, gallops, or rubs. RESPIRATORY: Clear to auscultation. Breath sounds equal bilaterally. No wheezes , rales, or rhonchi. GASTROINTESTINAL: Abdomen soft, non-tender, nondistended. Normal active bowel sounds MUSCULOSKELETAL: Extremities without clubbing, cyanosis, or edema. NEURO: Alert & Oriented x4 to person, place, time, situation. Moves all ext x4 Imaging Last Impressions Renal Ultrasound 08/13/17 0000 Signed Impressions: Service Date/Time: Sunday, August 13, 2017 11:37 - CONCLUSION: Normal examination. Perfecto Olvera MD Chest X-Ray 08/12/17 1127 Signed Impressions: Service Date/Time: Saturday, August 12, 2017 11:50 - CONCLUSION: 1. Pulmonary venous congestion. 2. No significant changes. Edwar Camara MD Assessment and Plan Problem List: (1) Symptomatic bradycardia ICD Codes: R00.1 - Bradycardia, unspecified Status: Acute Plan: Improved off AV nodals, no current sx, heart rates stable (2) Afib ICD Codes: I48.91 - Atrial fibrillation Status: Chronic Plan: on eliquis; likely some degree of tachy/parveen, she declines loop recorder for now to assist w/ mgt but she will consider. Assessment and Plan She wishes to come to my office for f/u henceforth (though I did recommend Dr. Marie for [facility] if she wished to change cardiologists), will see her back in 1-2 weeks. Aníbal Martin MD Aug 14, 2017 14:48
[2017-08-14] MEDS ORDERED: amLODIPine BESYLATE 5 MG TAB PO ONE (15:00)
[2017-08-14] MEDS ORDERED: AMLO5 PO (15:27)
[2017-08-14] MEDS: LEVOFLOXACIN 250 MG PREMIX INJ 50 ML IV SCH (15:27)
--- NOTE | 2017-08-14 15:31 | HHI.DCPOC ---
Discharge Care Plan Diagnosis: (1) Symptomatic bradycardia (2) PAULINA (acute kidney injury) (3) Hypertension Goals to Promote Your Health * To prevent worsening of your condition and complications * To maintain your health at the optimal level Directions to Meet Your Goals Take your medications as prescribed Follow your dietary instruction Follow activity as directed Keep your appointments as scheduled Take your immunizations and boosters as scheduled If your symptoms worsen call your PCP, if no PCP go to Urgent Care Center or Emergency Room Smoking is Dangerous to Your Health. Avoid second hand smoke Call the 24-hour hour crisis hotline for domestic abuse at Jerome Alfaro MD Aug 14, 2017 15:31
[2017-08-14] MEDS ORDERED: REST15CA PO (15:34)
[2017-08-15] MEDS ORDERED: amLODIPine BESYLATE 5 MG TAB PO SCH (09:00)
== END 2017-08-14 17:03 | disposition home or self-care (01) | DRG 683 ==
LOC: NEPC 10:57 → NEDA 14:08 → N04A 15:43
PROVIDERS: ADMIT Hospitalist; ATTEND Hospitalist
DX: N17.9 Acute kidney failure, unspecified (principal); N39.0 Urinary tract infection, site not specified; I67.1 Cerebral aneurysm, nonruptured; I49.5 Sick sinus syndrome; I48.0 Paroxysmal atrial fibrillation; J44.9 Chronic obstructive pulmonary disease, unspecified; E11.9 Type 2 diabetes mellitus without complications; I10 Essential (primary) hypertension; F41.9 Anxiety disorder, unspecified; K21.9 Gastro-esophageal reflux disease without esophagitis; Z79.01 Long term (current) use of anticoagulants; Z79.82 Long term (current) use of aspirin; E66.9 Obesity, unspecified; Z68.39 Body mass index [BMI] 39.0-39.9, adult
CPT/HCPCS: 71010; 76775; 80048; 80053; 80162; 81001; 82550; 82948; 83735; 83880; 84484; 85025; 85610; 85730; 87086; 93005; 94002; 94003; J1940; J1956; J7030

== ENCOUNTER 2018-02-15 12:32 | Emergency (ER) | payer MEDICARE ==
[~2018-02-15 12:32] MED LIST changes: -ALBU.5I INH; +AMLO5 PO; +ASPI-516 CHEW; -CART300C2 PO; +CLOB0.055 TOPICAL; +CLOTCRE TOPICAL; -DIGO0.12 PO; -ECOT81TA2 PO; +FENO145T2 PO; -FENO50TA PO; +FLUO10TA PO; -FLUT50I; +FLUT50SP EACH NARE; -FURO1TAB93 PO; +FURO40TA PO; -GABA300C3 PO; -GLUCTAB PO; -LEVA500T PO; -LISI-360 PO; +LISI40TA PO; -LORA1TAB PO; +LORA1TAB12 PO; +METH250T PO; +OMEP20TA93 PO; +POTA10TA2 PO; -PRIL20CA PO; +REST15CA PO; -SPIRCAP INH; -TRAM50 PO; +UMEC1AER INH; -Z.0.COMMODE-3:1; -Z.0.CPM; -Z.0.WALKERFRONT
[2018-02-15 12:41] VITALS: BP 126/78; PULSE 122; RESP 20; TEMP 98; O2SAT 96
[2018-02-15] MEDS ORDERED: SODIUM CHLORIDE 0.9% FLUSH 10 ML FLUSH IVF PRN (13:00)
[2018-02-15 13:08] VITALS: O2SAT 99
[2018-02-15] MEDS ORDERED: METOPROLOL TARTRATE 5 MG/5 ML VIAL IV PUSH ONE ×3 (13:15→14:15)
[2018-02-15] MEDS ORDERED: LORazepam 2 MG/ML VIAL IV PUSH ONE (13:15)
[2018-02-15 13:33] LABS: AUTOMATED NEUTROPHIL # 6.6 TH/MM3 (1.8-7.7); BASOPHIL % 0.4 % (0.0-2.0); EOSINOPHIL # 0.1 TH/MM3 (0-0.4); EOSINOPHIL % 1.2 % (0.0-4.0); HEMATOCRIT 33.1 % (35.0-46.0); HEMOGLOBIN 11.1 GM/DL (11.6-15.3); LYMPH % 16.4 % (9.0-44.0); LYMPHOCYTE # 1.4 TH/MM3 (1.0-4.8); MEAN CELL VOLUME 86.3 FL (80.0-100.0); MEAN CORPUSCULAR HGB CONC 33.6 % (32.0-36.0); MEAN PLATELET VOLUME 9.4 FL (7.0-11.0); MONO % 6.9 % (0.0-8.0); MONOCYTE # 0.6 TH/MM3 (0-0.9); NEUT % 75.1 % (16.0-70.0); PLATELET COUNT 253 TH/MM3 (150-450); RED BLOOD COUNT 3.84 MIL/MM3 (4.00-5.30); RED CELL DISTRIBUTION WIDTH 15.4 % (11.6-17.2); WHITE BLOOD COUNT 8.8 TH/MM3 (4.0-11.0)
[2018-02-15 13:40] LABS: INTERNATIONAL NORMALIZED RATIO 1.2 RATIO; PROTHROMBIN TIME - PATIENT 11.8 SEC (9.8-11.6)
[2018-02-15 13:48] LABS: ALBUMIN 3.5 GM/DL (3.4-5.0); ALT (GPT) 22 U/L (10-53); AST (GOT) 18 U/L (15-37); BLOOD UREA NITROGEN 24 MG/DL (7-18); CALCIUM 8.8 MG/DL (8.5-10.1); CHLORIDE 109 MEQ/L (98-107); CREATININE 0.75 MG/DL (0.50-1.00); GLOMERULAR FILTRATION RATE 76 ML/MIN (>89); GLUCOSE,RANDOM 83 MG/DL (74-106); MAGNESIUM 1.8 MG/DL (1.5-2.5); SODIUM (NA) 143 MEQ/L (136-145)
--- NOTE | 2018-02-15 13:48 | PD ---
HPI Chief Complaint: Cardiac Complaint Time Seen by Provider: 12:49 Travel History International Travel<30 days: No Contact w/Intl Traveler<30days: No Traveled to known affect area: No History of Present Illness HPI 72-year-old female that presents to the ED for evaluation of atrial fibrillation. Patient states that she has an iPad that checks her heart rate and apparently was high today. She called her provider from [facility] who recommended that she comes to the urgent care. She went to the urgent care and told her to come here. Found that she was in A. fib and RVR. To try to get in contact with her manager file but I will be able to see her until February 21. She states no chest pain but she feels anxious. Per patient she believes this is more because of anxiety rather than the A. fib. Per patient she does have a history of A. fib and had it about 5 years ago and had some medications that seem to take care of it. She follows with Dr. Kessler. She states that she has no chest pain or shortness of breath. Per patient she only knows about her heart rate being elevated because of the iPad. Otherwise she does not really feel anything other than feeling anxious. She denies any history of heart disease other than the A. fib. She denies any fevers chills or sweats. No recent travel. She takes Xarelto already. She does have multiple allergies to different medications and most of them are related to anesthesia. She states that she is compliant with her medications. Denies any bowel movement or urinary issues alert and having darker stools than normal. No blood in the stool. 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) Cardiovascular Problems: Yes (ATRIAL FIB) High Cholesterol: Yes Chest Pain: No Congestive Heart Failure: No COPD: Yes Cerebrovascular Accident: Yes (tia) Diabetes: Yes Patient Takes Glucophage: Yes (last taken: 02/13/2018) Endocrine: No Gastrointestinal Disorders: Yes (ACID REFLUX ) GERD: Yes Glaucoma: No Genitourinary: No Hepatitis: No Hiatal Hernia: Yes Hypertension: Yes Immune Disorder: No Kidney Stones: No Musculoskeletal: Yes (ARTHRITIS) Neurologic: Yes (aneurysm of brain) Psychiatric: No Reproductive: No Respiratory: Yes (SLEEP APNEA, COPD, ASTHMA ) Migraines: No Renal Failure: No Seizures: No Sleep Apnea: Yes (NEEDS BIPAP AT NIGHT) Thyroid Disease: No Ulcer: No PNEUMOCCOCAL Vaccine (Year): 1 ?: Not Past Surgical History Abdominal Surgery: Yes (hernia) AICD: No Body Medical Devices: TITANIUM PIN LEFT BREAST Cholecystectomy: Yes Eye Surgery: Yes (BILATERAL CATARACT SX) Gynecologic Surgery: No Joint Replacement: No Mastectomy: Yes Oral Surgery: Yes (tonsillectomy) Pacemaker: No Thoracic Surgery: Yes (RIGHT RADICAL MASTECTOMY) Tonsillectomy: Yes Other Surgery: Yes Social History Alcohol Use: No Tobacco Use: No Substance Use: No Allergies-Medications (Allergen,Severity, Reaction): Coded Allergies: diatrizoate meglumine (Unverified Allergy, Severe, Rash, 02/15/18) epinephrine (Unverified Allergy, Severe, SEVERE HEART POUNDING, 02/15/18) gadobenic acid (Unverified Allergy, Severe, Rash, 02/15/18) gadodiamide (Unverified Allergy, Severe, Rash, 02/15/18) gadoteridol (Unverified Allergy, Severe, Rash, 02/15/18) iodixanol (Unverified Allergy, Severe, Rash, 02/15/18) iohexol (Unverified Allergy, Severe, Rash, 02/15/18) meperidine (Unverified Allergy, Severe, HALLUCINATIONS, 02/15/18) penicillin G (Unverified Allergy, Severe, Rash, 02/15/18) procaine (Unverified Allergy, Severe, CAUSED SEVERE HEART POUNDING, ) propofol (Unverified Allergy, Severe, hot for 3 days and then cold for 3 days, 02/15/18) warfarin (Unverified Allergy, Severe, Hives, 02/15/18) Sulfa (Sulfonamide Antibiotics) (Unverified Allergy, Unknown, 02/15/18) PT UNSURE OF REACTION clonidine (Verified Allergy, Unknown, 02/15/18) labetalol (Verified Allergy, Unknown, 02/15/18) Uncoded Allergies: anesthesia (Adverse Reaction, Severe, Irritability/Anxiety, 09/26/15) pt states she has multiple reactions to anesthesia sulfur (Adverse Reaction, Severe, 09/26/15) Reported Meds & Prescriptions Reported Meds & Active Scripts Active Cardizem (Diltiazem HCl) 120 Mg Tab 240 Mg PO DAILY Norvasc (Amlodipine Besylate) 5 Mg Tab 10 Mg PO DAILY Reported Ventolin Hfa 18 GM Inh (Albuterol Sulfate) 90 Mcg/Act Aer 2 Puff INH Q4-6H PRN Potassium Chloride ER (Potassium Chloride) 10 Meq Tab 10 Meq PO DAILY PRN Omeprazole 20 Mg Tab 20 Mg PO DAILY Methyldopa 250 Mg Tab 250 Mg PO BID Lorazepam 1 Mg Tab 1 Mg PO Q8H PRN Lisinopril 40 Mg Tab 40 Mg PO DAILY Furosemide 40 Mg Tab 40 Mg PO DAILY PRN Fluticasone Nasal [place] 50 Mcg/Act Naspr 50 Mcg EACH NARE BID 50 mcg/spray Fenofibrate 145 Mg Tab 145 Mg PO DAILY Epipen 2-Toño Inj (Epinephrine) 0.3 Mg/0.3 Ml Pfpen 0.3 Mg IM ONCE PRN Eliquis (Apixaban) 5 Mg Tab 5 Mg PO BID Aspirin 81 Mg Chew 81 Mg CHEW DAILY Anoro Ellipta Inh (Umeclidinium/Vilanterol) 62.5-25 Mcg/Act Aero 1 Puff INH DAILY Review of Systems Except as stated in HPI: all other systems reviewed are Neg Physical Exam Narrative GENERAL: SKIN: Warm and dry. HEAD: Atraumatic. Normocephalic. EYES: Pupils equal and round. No scleral icterus. No injection or drainage. ENT: No nasal bleeding or discharge. Mucous membranes pink and moist. Tongue is midline. No uvula deviation. NECK: Trachea midline. No JVD. CARDIOVASCULAR: Irregular rate and rhythm. No murmurs, S3, S4. RESPIRATORY: No accessory muscle use. Clear to auscultation. Breath sounds equal bilaterally. GASTROINTESTINAL: Abdomen soft, non-tender, nondistended. Hepatic and splenic margins not palpable. MUSCULOSKELETAL: Extremities without clubbing, cyanosis, or edema. No obvious deformities. Full range of motion of the upper and lower extremities bilaterally. 2+ pulses bilaterally. NEUROLOGICAL: Awake and alert. No obvious cranial nerve deficits. Motor grossly within normal limits. Five out of 5 muscle strength in the arms and legs. Normal speech. PSYCHIATRIC: Appropriate mood and affect; insight and judgment normal. Data Data Last Documented VS Vital Signs Date Time Temp Pulse Resp B/P (MAP) Pulse Ox O2 Delivery O2 Flow Rate FiO2 02/15/18 13:08 99 Room Air 02/15/18 12:41 98.0 122 20 126/78 (94) Orders Orders Electrocardiogram (02/15/18 12:58) Ckmb (Isoenzyme) Profile (02/15/18 12:58) Complete Blood Count With Diff (02/15/18 12:58) Comprehensive Metabolic Panel (02/15/18 12:58) Magnesium (Mg) (02/15/18 12:58) Prothrombin Time / Inr (Pt) (02/15/18 12:58) Act Partial Throm Time (Ptt) (02/15/18 12:58) Troponin I (02/15/18 12:58) Lipase (02/15/18 12:58) Chest, Single Ap (02/15/18 12:58) Ecg Monitoring (02/15/18 12:58) Bilateral Bp Monitoring (02/15/18 12:58) Iv Access Insert/Monitor (02/15/18 12:58) Oximetry (02/15/18 12:58) Sodium Chloride 0.9% Flush (Ns Flush) (02/15/18 13:00) Metoprolol Tartrate Inj (Lopressor Inj) (02/15/18 13:15) Metoprolol Tartrate Inj (Lopressor Inj) (02/15/18 13:15) Lorazepam Inj (Ativan Inj) (02/15/18 13:15) Metoprolol Tartrate Inj (Lopressor Inj) (02/15/18 14:15) Diltiazem (Cardizem) (02/15/18 14:45) Ed Discharge Order (02/15/18 14:41) Labs Laboratory Tests Test 02/15/18 13:12 White Blood Count 8.8 TH/MM3 Red Blood Count 3.84 MIL/MM3 Hemoglobin 11.1 GM/DL Hematocrit 33.1 % Mean Corpuscular Volume 86.3 FL Mean Corpuscular Hemoglobin 29.0 PG Mean Corpuscular Hemoglobin Concent 33.6 % Red Cell Distribution Width 15.4 % Platelet Count 253 TH/MM3 Mean Platelet Volume 9.4 FL Neutrophils (%) (Auto) 75.1 % Lymphocytes (%) (Auto) 16.4 % Monocytes (%) (Auto) 6.9 % Eosinophils (%) (Auto) 1.2 % Basophils (%) (Auto) 0.4 % Neutrophils # (Auto) 6.6 TH/MM3 Lymphocytes # (Auto) 1.4 TH/MM3 Monocytes # (Auto) 0.6 TH/MM3 Eosinophils # (Auto) 0.1 TH/MM3 Basophils # (Auto) 0.0 TH/MM3 CBC Comment DIFF FINAL Differential Comment Prothrombin Time 11.8 SEC Prothromb Time International Ratio 1.2 RATIO Activated Partial Thromboplast Time 29.5 SEC Blood Urea Nitrogen 24 MG/DL Creatinine 0.75 MG/DL Random Glucose 83 MG/DL Total Protein 6.9 GM/DL Albumin 3.5 GM/DL Calcium Level 8.8 MG/DL Magnesium Level 1.8 MG/DL Alkaline Phosphatase 46 U/L Aspartate Amino Transf (AST/SGOT) 18 U/L Alanine Aminotransferase (ALT/SGPT) 22 U/L Total Bilirubin 0.3 MG/DL Sodium Level 143 MEQ/L Potassium Level 4.3 MEQ/L Chloride Level 109 MEQ/L Carbon Dioxide Level 25.0 MEQ/L Anion Gap 9 MEQ/L Estimat Glomerular Filtration Rate 76 ML/MIN Total Creatine Kinase 54 U/L Troponin I LESS THAN 0.02 NG/ML Lipase 222 U/L MDM Medical Decision Making Medical Screen Exam Complete: Yes Emergency Medical Condition: Yes Medical Record Reviewed: Yes Interpretation(s) EKG showed atrial fibrillation in RVR. CBC & BMP Diagram 02/15/18 13:12 Total Protein 6.9, Albumin 3.5, Calcium Level 8.8, Magnesium Level 1.8, Alkaline Phosphatase 46, Aspartate Amino Transf (AST/SGOT) 18, Alanine Aminotransferase (ALT/SGPT) 22, Total Bilirubin 0.3 Troponin and CK-MB negative. Last Impressions Chest X-Ray 02/15/18 1258 Signed Impressions: Service Date/Time: Thursday, February 15, 2018 13:52 - CONCLUSION: Normal examination. Carroll Eastman MD coags WNL Differential Diagnosis A. fib and RVR versus GI bleed versus anxiety versus dehydration versus arrhythmia versus ACS Narrative Course 72-year-old female that presents to the ED for evaluation of A. fib. Patient was properly examined and was found to have signs and symptoms consistent with appears to be atrial fibrillation and RVR. She is currently in the 120s 130s. Unfortunately the hospital is out of Cardizem so patient was given a low dose of metoprolol IV. She will be monitored. Did a Hemoccult that was negative on the patient. No sign of GI bleed at this time. Labs and imaging ordered. Labs and imaging negative for acute disease other than for atrial fibrillation RVR. Patient's heart rate has improved. She is not in the 90s 100s. She specifically does not want to stay in the hospital unless absolutely needed. I spoke with Dr. Lew for cardiology who is on-call for Dr. Kessler and review her chart and recommended to the patient can be discharged with diltiazem 250 mg's once a day and stop the amlodipine. She wants the patient to start time sent 60 mg 1 dose p.o. here and he is going to try to refer her to Dr. Banegas as well as to have an outpatient echocardiogram. This was discussed with the patient who is in agreement with plan. She is happy with being discharged. She understands reasons to come back. She understands that she cannot miss her Eliquis she does have atrial fibrillation. Close follow-up with cardiology or PCP. See ED worsening symptoms. My attending Dr. Vaughn was made aware of findings and evaluated the patient herself. She agrees with plan. Diagnosis Primary Impression: Atrial fibrillation Qualified Codes: I48.0 - Paroxysmal atrial fibrillation Patient Instructions: General Instructions Additional Instructions: Stop taking your amlodipine for now until seen by manager file. F/u with your manager file. Take Cardizem instead. See ED if worsening symptoms F/u with PCP. Med/Other Pt SpecificInfo: Prescription(s) given Scripts Diltiazem (Cardizem) 120 Mg Tab 240 MG PO DAILY for Blood Pressure Management, #30 TAB 0 Refills Prov: Jazmyn Brannon MD 02/15/18 Disposition: 01 DISCHARGE HOME Condition: Stable Dayday Godoy Feb 15, 2018 13:48
[2018-02-15 13:52] LABS: ALKALINE PHOSPHATASE 46 U/L (45-117); TOTAL BILIRUBIN ADULT 0.3 MG/DL (0.2-1.0); TOTAL PROTEIN 6.9 GM/DL (6.4-8.2); TROPONIN I LESS THAN 0.02 NG/ML (0.02-0.05)
--- NOTE | 2018-02-15 14:19 | RADRPT ---
EXAM DATE/TIME: 02/15/2018 13:52 [facility] COMPARISON: CHEST SINGLE AP, August 12, 2017, 11:50. INDICATIONS : Chest discomfort; afib. MEDICAL HISTORY : Chronic obstructive pulmonary disease. Emphysema. Carcinoma, breast. TIA. Afib. SURGICAL HISTORY : Cholecystectomy. Mastectomy. ENCOUNTER: Initial ACUITY: 1 day PAIN SCORE: 0/10 LOCATION: Bilateral chest FINDINGS: A single view of the chest demonstrates the lungs to be symmetrically aerated without evidence of mas s, infiltrate or effusion. The cardiomediastinal contours are unremarkable. Osseous structures are intact. CONCLUSION: Normal examination. Carroll Eastman MD on February 15, 2018 at 14:16 Board Certified Radiologist. This report was verified electronically.
[2018-02-15] MEDS ORDERED: CARD120T4 PO (14:41)
[2018-02-15] MEDS ORDERED: DILTIAZEM HCL 60 MG TAB PO ONE (14:45)
[2018-02-15 14:54] VITALS: PULSE 96
[2018-02-15] MEDS ORDERED: LORA-474 PO (15:03)
--- NOTE | 2018-02-15 15:03 | PD ---
Physical Exam Date Seen by Provider: Feb 15, 2018 Time Seen by Provider: 12:30 Narrative I, Dr. Brannon, have reviewed the advance practice practitioner's documentation and am in agreement, met with the patient face to face, made the diagnosis, and the medical decision making was done by me. *My assessment and Findings: Patient seen and evaluated with PA, please see PA notes for further details, here because of palpitations, fast heart rate, anxiety, A. fib with RVR at a rate of 130 bpm. She was given metoprolol IV in the ER with improvement in rate to 100 bpm. Lab work did not show any signs of cardiac enzyme changes or other acute processes. Case was discussed with physician covering for her hammerer, Dr. Lew, and he states that patient can be put on p.o. Cardizem and release with follow-up to cardiology, may need electrophysiology consult as well. Laboratory Tests Test 02/15/18 13:12 Red Blood Count 3.84 MIL/MM3 (4.00-5.30) Hemoglobin 11.1 GM/DL (11.6-15.3) Hematocrit 33.1 % (35.0-46.0) Neutrophils (%) (Auto) 75.1 % (16.0-70.0) Prothrombin Time 11.8 SEC (9.8-11.6) Blood Urea Nitrogen 24 MG/DL (7-18) Chloride Level 109 MEQ/L (98-107) Estimat Glomerular Filtration Rate 76 ML/MIN (>89) Troponin I LESS THAN 0.02 NG/ML Last 24 hours Impressions Chest X-Ray 02/15/18 1258 Signed Impressions: Service Date/Time: Thursday, February 15, 2018 13:52 - CONCLUSION: Normal examination. Carroll Eastman MD Initial EKG shows A. fib with RVR at a rate of 118 bpm. No signs of acute ST elevations or depressions. Data Data Last Documented VS Vital Signs Date Time Temp Pulse Resp B/P (MAP) Pulse Ox O2 Delivery O2 Flow Rate FiO2 02/15/18 14:54 96 02/15/18 13:08 99 Room Air 02/15/18 12:41 98.0 20 126/78 (94) Orders Orders Electrocardiogram (02/15/18 12:58) Ckmb (Isoenzyme) Profile (02/15/18 12:58) Complete Blood Count With Diff (02/15/18 12:58) Comprehensive Metabolic Panel (02/15/18 12:58) Magnesium (Mg) (02/15/18 12:58) Prothrombin Time / Inr (Pt) (02/15/18 12:58) Act Partial Throm Time (Ptt) (02/15/18 12:58) Troponin I (02/15/18 12:58) Lipase (02/15/18 12:58) Chest, Single Ap (02/15/18 12:58) Ecg Monitoring (02/15/18 12:58) Bilateral Bp Monitoring (02/15/18 12:58) Iv Access Insert/Monitor (02/15/18 12:58) Oximetry (02/15/18 12:58) Sodium Chloride 0.9% Flush (Ns Flush) (02/15/18 13:00) Metoprolol Tartrate Inj (Lopressor Inj) (02/15/18 13:15) Metoprolol Tartrate Inj (Lopressor Inj) (02/15/18 13:15) Lorazepam Inj (Ativan Inj) (02/15/18 13:15) Metoprolol Tartrate Inj (Lopressor Inj) (02/15/18 14:15) Diltiazem (Cardizem) (02/15/18 14:45) Ed Discharge Order (02/15/18 14:41) Labs Laboratory Tests Test 02/15/18 13:12 White Blood Count 8.8 TH/MM3 Red Blood Count 3.84 MIL/MM3 Hemoglobin 11.1 GM/DL Hematocrit 33.1 % Mean Corpuscular Volume 86.3 FL Mean Corpuscular Hemoglobin 29.0 PG Mean Corpuscular Hemoglobin Concent 33.6 % Red Cell Distribution Width 15.4 % Platelet Count 253 TH/MM3 Mean Platelet Volume 9.4 FL Neutrophils (%) (Auto) 75.1 % Lymphocytes (%) (Auto) 16.4 % Monocytes (%) (Auto) 6.9 % Eosinophils (%) (Auto) 1.2 % Basophils (%) (Auto) 0.4 % Neutrophils # (Auto) 6.6 TH/MM3 Lymphocytes # (Auto) 1.4 TH/MM3 Monocytes # (Auto) 0.6 TH/MM3 Eosinophils # (Auto) 0.1 TH/MM3 Basophils # (Auto) 0.0 TH/MM3 CBC Comment DIFF FINAL Differential Comment Prothrombin Time 11.8 SEC Prothromb Time International Ratio 1.2 RATIO Activated Partial Thromboplast Time 29.5 SEC Blood Urea Nitrogen 24 MG/DL Creatinine 0.75 MG/DL Random Glucose 83 MG/DL Total Protein 6.9 GM/DL Albumin 3.5 GM/DL Calcium Level 8.8 MG/DL Magnesium Level 1.8 MG/DL Alkaline Phosphatase 46 U/L Aspartate Amino Transf (AST/SGOT) 18 U/L Alanine Aminotransferase (ALT/SGPT) 22 U/L Total Bilirubin 0.3 MG/DL Sodium Level 143 MEQ/L Potassium Level 4.3 MEQ/L Chloride Level 109 MEQ/L Carbon Dioxide Level 25.0 MEQ/L Anion Gap 9 MEQ/L Estimat Glomerular Filtration Rate 76 ML/MIN Total Creatine Kinase 54 U/L Troponin I LESS THAN 0.02 NG/ML Lipase 222 U/L [facility] Medical Record Reviewed: Yes Supervised Visit with JOHNSON: Yes Diagnosis Primary Impression: Atrial fibrillation Qualified Codes: I48.0 - Paroxysmal atrial fibrillation Additional Impression: Anxiety Patient Instructions: General Instructions Departure Forms: Tests/Procedures Additional Instruction: Stop taking your amlodipine for now until seen by hammerer. F/u with your hammerer. Take Cardizem instead. See ED if worsening symptoms F/u with PCP. Scripts Lorazepam (Ativan) 1 Mg Tab 1 MG PO Q6H Y for ANXIETY AND/OR AGITATION, #7 TAB 0 Refills Prov: Jazmyn Brannon MD 02/15/18 Diltiazem (Cardizem) 120 Mg Tab 240 MG PO DAILY for Blood Pressure Management, #30 TAB 0 Refills Prov: Jazmyn Brannon MD 02/15/18 Disposition: DISCHARGE HOME Condition: Stable Jazmyn Brannon MD Feb 15, 2018 15:03
--- NOTE | 2018-02-16 16:38 | EKG ---
Date Performed: 02/15/2018 Time Performed: 13:53:06 PTAGE: 72 years EKG: ATRIAL FIBRILLATION WITH RAPID VENTRICULAR RESPONSE MARKED LEFT AXIS DEVIATION MINIMAL ST D EPRESSION ABNORMAL ECG PREVIOUS TRACING : 08/12/2017 12.07 Since the previous tracing, no significant change noted DOCTOR: Ziggy Solares Interpretating Date/Time 02/16/2018 16:32:44
== END 2018-02-15 15:22 | disposition home or self-care (01) ==
LOC: NEPE 12:32
DX: I48.0 Paroxysmal atrial fibrillation (principal); F41.9 Anxiety disorder, unspecified; J45.909 Unspecified asthma, uncomplicated; J44.9 Chronic obstructive pulmonary disease, unspecified; E11.9 Type 2 diabetes mellitus without complications; I10 Essential (primary) hypertension
CPT/HCPCS: 71045; 80053; 82550; 83690; 83735; 84484; 85025; 85610; 85730; 93005; 96374; 96375; 99285; J2060

== ENCOUNTER 2018-03-24 07:38 | Day surgery (SDC) | payer MEDICARE ==
[~2018-03-24 07:38] MED LIST changes: +CARD120T4 PO; -CLOB0.055 TOPICAL; -CLOTCRE TOPICAL; -FLUO10TA PO; +LORA-474 PO; -REST15CA PO
[2018-03-24] MEDS ORDERED: MUPIROCIN 2% OINT 1 APPLIC/GM SYR NASAL SCH (08:15)
[2018-03-24] MEDS ORDERED: NS 1000 ML IV SCH (08:15)
[2018-03-24] MEDS ORDERED: FERR325T18 PO (08:38)
[2018-03-24] MEDS ORDERED: DIGO0.127 PO (08:38)
[2018-03-24] MEDS ORDERED: METF500T PO (08:38)
[2018-03-24] MEDS ORDERED: MONT10TA4 PO (08:38)
[2018-03-24] MEDS ORDERED: VANCOMYCIN 1000 MG/NS 250 ML IV SCH ×2 (09:15)
[2018-03-24] MEDS ORDERED: MIDAZOLAM HCL 5 MG/ML VIAL (1 ML) ONE (09:17)
[2018-03-24] MEDS ORDERED: MIDAZOLAM HCL 2 MG/2 ML VIAL IV PUSH ONE ×2 (10:37→10:45)
--- NOTE | 2018-03-24 10:59 | MA ---
cc: Aníbal Martin MD DATE: 03/24/2018 DATE OF PROCEDURE: 03/24/2018 INDICATION FOR PROCEDURE: Atrial fibrillation detection. PROCEDURES PERFORMED: 1. Fifteen minutes of moderate IV sedation. 2. Loop recorder insertion. DESCRIPTION OF PROCEDURE: The patient was brought to the DOC Unit in the postabsorptive state. After informed consent was obtained, 3 mg of Versed and 50 mcg of fentanyl was given for moderate IV sedation. Next, a Zaelab LINQ, loop recorder was inserted subcutaneously to the left chest. The patient tolerated the procedure well without any apparent complications. Tachybrady pause and atrial fibrillation detection was enabled. The initial R-wave was 0.41 millivolts. The serial number was [id number]. Aníbal Martin MD TERESA/DIOMEDES , 10:49 AM , 10:58 AM
== END 2018-03-24 12:47 | disposition home or self-care (01) ==
LOC: HDOC 07:38 → HDIC 07:39 → HDOC 12:47
PROVIDERS: ATTEND Nuclear Medicine Nuclear Cardiology
DX: I48.91 Unspecified atrial fibrillation (principal)
CPT/HCPCS: 33282; 99152; C1764; J2250; J3010; J3370; J7050